=== PATIENT | male | born 1980 | race Caucasian/White ===

== ENCOUNTER 2018-01-20 19:36 | Emergency (ER) | END 2018-01-20 21:39 | disposition home or self-care (01) ==

== ENCOUNTER 2018-03-18 19:36 | Emergency (ER) | END 2018-03-18 23:34 | disposition home or self-care (01) ==

== ENCOUNTER 2018-08-17 09:53 | Emergency (ER) | payer OTHER ==
[~2018-08-17] VITALS: Wt 85.3 kg
[~2018-08-17 09:53] MED LIST: ALPR0.5T PO; NEXIUM; QUET25TA PO
[2018-08-17] MEDS ORDERED: ASPIRIN 325 MG TAB PO STA (10:16)
[2018-08-17] MEDS ORDERED: LORAZEPAM 2 MG INJ IV STA (10:16)
[2018-08-17] MEDS ORDERED: SOD CHLORIDE 0.9% 1,000 ML IV STA (10:16)
--- NOTE | 2018-08-17 11:06 | ERD ---
ER Documentation Chief Complaint Chief Complaint CHEST PAIN X 2 WEEKS HPI This is a 37-year-old male that presents to the emergency department complaining of two weeks of chest pain. He states this is sharp-like pain. He states the pain does not radiate to his neck arm back or jaw. He indicates that he does utilize Adderall prior to workouts on a daily basis and after workouts he takes GHB to help him relax. He indicates he gets these medications not prescribed but off the street. He also indicates he is a history of ulcers and takes omeprazole. He denies any hemoptysis hematemesis or melanotic stools. He denies any suicidal homicidal thoughts or ideations. He indicates he is a family history of coronary artery disease as his father had a heart attack at 58 years of age. He denies any shortness of breath at rest or exertion. The patient also indicates that he had unprotected sex 12 hours prior to arrival with a female he does not know very well. He indicated he awoke this morning and noticed redness to the tip of his penis. He denied any ulcers or lesions of the penis. He denied any abnormal urethral discharge. He is concerned for possible STD. ROS All systems reviewed and are negative except as per history of present illness. Medications Home Meds Discontinued Reported Medications [Nexium] No Conflict Check 08/23/11 Discontinued Scripts Quetiapine Fumarate* (Seroquel*) 25 Mg Tablet, 25 MG PO HS for insomnia, #5 TAB Prov:AYESHA KRAUS DO 03/18/18 Alprazolam* (Xanax*) 0.5 Mg Tab, 0.5 MG PO QHS PRN for INSOMNIA, #5 TAB Prov:AYESHA KRAUS DO 03/18/18 Allergies Allergies: Coded Allergies: morphine (Verified Allergy, Severe, angioedema, 08/17/18) PMhx/Soc History of Surgery: Yes (discectomy, STOMACH ULCER) Anesthesia Reaction: No Hx Neurological Disorder: No Hx Respiratory Disorders: No Hx Cardiac Disorders: No Hx Psychiatric Problems: No Hx Miscellaneous Medical Probl: No Hx Alcohol Use: No Hx Substance Use: Yes (GHB, adderall; hx of opioid/benzo abuse) Hx Tobacco Use: Yes Smoking Status: Current every day smoker Physical Exam Vitals Vital Signs Date Temp Pulse Resp B/P (MAP) Pulse Ox O2 O2 Flow FiO2 Time Delivery Rate 08/17/18 122 147/89 100 Room Air 11:31 (108) 08/17/18 144 20 144/98 Room Air 10:38 (113) 08/17/18 98.1 111 18 134/82 99 09:54 (99) Physical Exam Constitutional:Well-developed. Well-nourished. HEENT:Normocephalic. Atraumatic.Pupils were 2mm equal round reactive to light. Moist mucous membranes.No tonsillar exudates. Neck: No nuchal rigidity. No lymphadenopathy. No posterior cervical spine te nderness or step-offs. Respiratory: Not using accessory muscles of respiration.Lungs were clear to a uscultation bilaterally. No rhonchi. No rales. No wheezing. Cardiovascular: Tachycardic.No murmurs. No rubs were appreciated.S1, S2 normal. Distal pulses are palpable 2+ bilaterally. Reproducible tenderness over the left substernal chest wall with no crepitus no ecchymosis no flail chest GI: Abdomen was soft. Nontender. Non Distended. No pulsatile abdominal masses or bruits. No rebound. No guarding. Bowel sounds were present and normal. : No abnormal urethral discharge. No chancre. No ulcers or lesions on the shaft of the penis Muscle skeletal: Full range of motion of both the upper and lower extremities bilaterally.Normal muscle tone.No assymetrical calf tenderness or swelling. Skin: No petechia, no purpura. No lesions on the palms or the soles of the feet. No maculopapular rash. NEURO: Patient was alert, awake, orientated x3.No facial droop. Gait observed and normal with no ataxia.Speech had regular rate and rhythm. No focal neurological deficits. Result Diagram: 08/17/18 1020 08/17/18 1020 Results 24 hrs Laboratory Tests Test 08/17/18 10:20 White Blood Count 13.3 10^3/ul Red Blood Count 4.34 10^6/ul Hemoglobin 12.5 g/dl Hematocrit 38.6 % Mean Corpuscular Volume 88.9 fl Mean Corpuscular Hemoglobin 28.8 pg Mean Corpuscular Hemoglobin Concent 32.4 g/dl Red Cell Distribution Width 14.5 % Platelet Count 288 10^3/UL Mean Platelet Volume 10.2 fl Immature Granulocytes % 0.700 % Neutrophils % 67.2 % Lymphocytes % 18.4 % Monocytes % 12.0 % Eosinophils % 1.1 % Basophils % 0.6 % Nucleated Red Blood Cells % 0.0 /100WBC Immature Granulocytes # 0.090 10^3/ul Neutrophils # 8.9 10^3/ul Lymphocytes # 2.5 10^3/ul Monocytes # 1.6 10^3/ul Eosinophils # 0.1 10^3/ul Basophils # 0.1 10^3/ul Nucleated Red Blood Cells # 0.0 10^3/ul Prothrombin Time 12.6 Sec Prothrombin Time Ratio 1.0 INR International Normalized Ratio 0.93 Activated Partial Thromboplast Time 29.5 Sec Sodium Level 143 mmol/L Potassium Level 3.8 mmol/L Chloride Level 108 mmol/L Carbon Dioxide Level 21 mmol/L Anion Gap 14 Blood Urea Nitrogen 21 mg/dl Creatinine 0.85 mg/dl Est Glomerular Filtrat Rate mL/min > 60 mL/min Glucose Level 134 mg/dl Calcium Level 9.4 mg/dl Total Bilirubin 0.6 mg/dl Direct Bilirubin 0.00 mg/dl Indirect Bilirubin 0.6 mg/dl Aspartate Amino Transf (AST/SGOT) 31 IU/L Alanine Aminotransferase (ALT/SGPT) 21 IU/L Alkaline Phosphatase 88 IU/L Creatine Kinase 616 IU/L Creatine Kinase Index 0.6 Creatinine Kinase MB (Mass) 3.48 ng/ml Troponin I < 0.012 ng/ml B-Type Natriuretic Peptide 70 PG/ML Total Protein 7.7 g/dl Albumin 4.5 g/dl Globulin 3.20 g/dl Albumin/Globulin Ratio 1.40 Urine Opiates Screen Negative Urine Barbiturates Negative Urine Amphetamines Screen POSITIVE Urine Benzodiazepines Screen Negative Urine Cocaine Screen Negative Urine Cannabinoids Negative Ethyl Alcohol Level < 10.0 mg/dl Current Medications Medications Dose Sig/Brianna Start Time Status Last (Trade) Ordered Route PRN Stop Time Admin Dose Reason Admin Sodium 1,000 ml @ Q1H STAT 08/17/18 DC 08/17/18 Chloride 1,000 mls/hr IV 10:16 10:32 08/17/18 11:15 Aspirin 325 mg ONCE STAT 08/17/18 DC (Aspirin) PO 10:16 08/17/18 10:17 Lorazepam 1 mg ONCE STAT 08/17/18 DC 08/17/18 (Ativan) IV 10:16 10:32 08/17/18 10:17 Lorazepam 1 mg ONCE ONCE 08/17/18 DC 08/17/18 (Ativan) IV 11:30 11:28 08/17/18 11:31 1,000 mg ONCE STAT 08/17/18 DC 08/17/18 Azithromycin PO 11:22 11:27 (Zithromax) 08/17/18 11:23 Ceftriaxone 250 mg ONCE STAT 08/17/18 DC 08/17/18 Sodium IM 11:22 11:37 (Rocephin) 08/17/18 11:23 Procedures/MDM The patient presented to the emergency department complaining of chest pain. My clinical evaluation and workup was to distinguish minor causes of chest pain from acute life threatening cardiopulmonary causes such as myocardial infarction, pulmonary embolism, aortic dissection, esophageal rupture, cardiac tamponade, The patient was placed on a front desk monitor, continuous pulse oximetry and IV access established by nursing staff. The patient was refusing aspirin as he states he has ulcers. The patient was very anxious and was given IV Ativan. 12 Lead EKG tracing ordered and reviewed by myself showed: Sinus tachycardia 109 bpm and no arrhythmia. SC interval normal. QRS duration normal. No ST segment elevation No ST segment depression. No changes consistent with acute ischemia. The patients chest pain was reproduced by palpation and horizontal flexion of the arms. It was my clinical impression that the pain was a result of inflammation of the skin and subcutaneous structures of the chest wall versus myocardial ischemia. I felt the patient had low-risk chest pain and could therefore be safely discharged with close follow-up. The patient also has a possible STD exposure was prophylactically treated for gonorrhea and chlamydia given ceftriaxone and azithromycin in the emergency department. I did feel his chest pain was also exacerbated by the use of Adderall and GHB. I explained to the patient the adverse effects of using this medication when not prescribed by a physician. The patient was discharged home in fair condition. They were instructed to return to the emergency department at any time if there was any worsening of their condition. The patient stated they would follow up with their PCP in the next 24-48 hours to initiate a suitable medication regimen under the care of their PCP as well as to allow their PCP to monitor any drug reactions. The patient was discharged home with prescriptions after they gave informed consent to the new medication. The patient was positive for amphetamines. He was tachycardic thought to be secondary to amphetamine use and had been given IV Ativan. Tachycardia had result they were also fully informed by myself on the adverse effects and adverse drug interactions in order to provide adequate safeguards to prevent possible adverse reactions to medications. Departure Diagnosis: Primary Impression: Costochondritis, acute Additional Impressions: Potential exposure to STD Adverse effect of amphetamine Condition: CHAIM Kincaid MD Aug 17, 2018 11:04
[2018-08-17] MEDS ORDERED: AZITHROMYCIN 250 MG TAB PO STA (11:22)
[2018-08-17] MEDS ORDERED: CEFTRIAXONE 250 MG INJ IM STA (11:22)
[2018-08-17] MEDS ORDERED: LORAZEPAM 2 MG INJ IV ONE ×2 (11:30→13:00)
[2018-08-17 13:13] VITALS: BP 116/75; PULSE 129; RESP 21
== END 2018-08-17 14:09 | disposition home or self-care (01) ==
LOC: E/R 09:53
DX: M94.0 Chondrocostal junction syndrome [Tietze] (principal); T43.625A Adverse effect of amphetamines, initial encounter; F17.210 Nicotine dependence, cigarettes, uncomplicated; Z20.2 Contact with and (suspected) exposure to infections with a predominantly sexual mode of transmission
CPT/HCPCS: 36415; 71045; 80053; 80307; 82550; 82553; 83880; 84484; 85025; 85610; 85730; 93005; 96361; 96372; 96374; 96376; J0696; J2060; J7030; Z7502; Z7610

== ENCOUNTER 2019-01-03 09:36 | Day surgery (SDC) | payer OTHER ==
[2019-01-03] VITALS (15 sets, daily range): BP systolic 104–126; BP diastolic 50–71; PULSE 72–94; RESP 13–20; Ht 170.2 cm; Wt 93.1 kg
[~2019-01-03] VITALS: Ht 170.2 cm; Wt 93.1 kg
[2019-01-03] MEDS ORDERED: ESOM20CA PO (10:33)
--- NOTE | 2019-01-03 10:40 | HPN ---
Date/Time of Note Date/Time of Note DATE: 01/03/19 TIME: 10:40 Interval H&P Admission Note Pt. seen H&P reviewed: No system changes KALEB DE LA PAZ MD January 03, 2019 10:40
[2019-01-03] MEDS ORDERED: BUPIVACAINE 0.25% (MPF) 30 ML INJ ONE (12:52)
[2019-01-03] MEDS ORDERED: LIDOCAINE 1%/EPI (1:100,000) (MDV) 20 ML ONE (12:52)
--- NOTE | 2019-01-03 13:08 | PREAC ---
Date/Time of Note Date/Time of Note DATE: 01/03/19 TIME: 13:06 Anesthesia Eval and Record Evaluation Time Pre-Procedure Interview DATE: 01/03/19 TIME: 13:06 Age 38 Sex male NPO: 8 hrs Preoperative diagnosis thyroid cyst Planned procedure thyroid cyst excision Past Medical History Past Medical History: Includes GI: GERD, Other (stomach ulcer ) Recreational drugs: Other (hx of opiod use ) Surgery & Anesthesia Issues No known issue Meds Anticoagulation: No Beta Ely within 24 hr: No Reason Beta Ely not given: Pt. not on B-Ely Reported Medications Esomeprazole Mag Trihydrate (Nexium) 20 Mg Capsule.dr, 20 MG PO DAILY, #30 CAP 01/03/19 Meds reviewed: Yes Allergies Coded Allergies: morphine (Verified Allergy, Severe, THROAT CLOSING ITCHY, 01/03/19) Allergies Reviewed: Yes Labs/Studies Labs Reviewed: Reviewed by anesthesiologist test: N/A Pre-procedure Exam Last vitals Vital Signs Date Temp Pulse Resp B/P (MAP) Pulse Ox O2 O2 Flow FiO2 Time Delivery Rate 01/03/19 98.0 82 16 116/64 97 Room Air 10:39 (81) Airway: Adequate mouth opening, Adequate thyromental dist Mallampati: Mallampati III Teeth: Normal Lung: Normal Heart: Normal ASA Physical Status ASA physical status: 2 Emergency: None Pre-operative Attestations Prior to commencing anesthesia and surgery, the patient was re-evaluated, there was verification of: *The patient's identity *The results of appropriate recent lab work and preoperative vital signs *The above evaluation not changing prior to induction *Anesthetic plan, risk benefits, alternative and complications discussed with patient/family; questions answered; patient/family understands, accepts and w ishes to proceed. EMY REYNOSO DO January 03, 2019 13:08
[2019-01-03] MEDS ORDERED: PROPOFOL 20 ML ONE (13:12)
[2019-01-03] MEDS ORDERED: LIDOCAINE 2% (SDV) 5 ML INJ ONE (13:12)
[2019-01-03] MEDS ORDERED: FENTAnyl 50 MCG/ML VIAL ONE (13:13)
[2019-01-03] MEDS ORDERED: MIDAZOLAM 1 MG/ML 2 ML INJ ONE (13:13)
[2019-01-03] MEDS ORDERED: CEFAZOLIN 1 GM INJ ONE (13:24)
[2019-01-03] MEDS ORDERED: ONDANSETRON 4 MG INJ ONE (13:24)
[2019-01-03] MEDS ORDERED: KETOROLAC 30 MG INJ IV PRN (13:30)
[2019-01-03] MEDS ORDERED: ACETAMINOPHEN 1000MG/100ML IV 100 ML IVPB ONE (13:30)
[2019-01-03] MEDS ORDERED: SUGAMMADEX SODIUM 200 MG/2 ML VIAL IV ONE (14:10)
--- NOTE | 2019-01-03 14:15 | SIPON ---
Date/Time of Note Date/Time of Note DATE: 01/03/19 TIME: 14:14 Operative Report Preoperative Diagnosis Midline thyroid cyst Postoperative Diagnosis Same Operation/Procedure Performed Partial thyroidectomy with excision of midline thyroid cyst Surgeon see signature line graphic design assistant None Anesthesia: general Estimated blood loss: minimal Transfusion Required none Specimen Thyroid cyst Grafts/Implants none Complications none KALEB DE LA PAZ MD January 03, 2019 14:15
--- NOTE | 2019-01-03 14:19 | OPR ---
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 The patient is symptomatic from the cyst and wishes to have it excised. The risks, benefits and alternative surgery were discussed. The risks included but not limited to bleeding, infection, scar, recurrence of cyst, need for further surgery, damage the recurrent laryngeal nerves, permanent hoarseness and numbness to the area. He understood these and signed consent. Procedure Description After informed consent was obtained, the patient was brought back to operating room. He was intubated by anesthesia and sedated. Shoulder roll was placed. The neck was prepped and draped in usual sterile fashion. A 2 cm incision was marked in a relaxed skin tension line overlying the cyst. The incision was carried down to the strap muscles. The strap muscles were divided in the midline. Medially the cyst was encountered. I first dissected inferiorly midline identifying the trachea. I then dissected superiorly midline above the isthmus. I then carefully dissected away fascial attachments of the thyroid parenchyma away from the cyst. This was done carefully and slowly so as not to cauterize any tissue that had any appearance of that of nerve tissue. And no point did my dissection carry over to the lateral side of the trachea. Once rem fernie, the area was irrigated profusely with saline. A small piece of Surgicel was placed in the wound bed. The strap muscles were closed with 3-0 Vicryl suture. The platysma was closed with 3-0 Vicryl suture. The skin was closed in a subcuticular fashion with 5-0 Monocryl. Mastisol, Steri-Strips, Telfa and Tegaderm placed on the incision. The patient was extubated by anesthesia and brought to the recovery in stable condition. KALEB DE LA PAZ MD January 03, 2019 14:19
--- NOTE | 2019-01-03 14:27 | PAC ---
Date/Time of Note Date/Time of Note DATE: 01/03/19 TIME: 14:27 Post-Anesthesia Notes Post-Anesthesia Note Last documented vital signs Vital Signs Date Temp Pulse Resp B/P (MAP) Pulse Ox O2 O2 Flow FiO2 Time Delivery Rate 01/03/19 98 75 18 115/62 97 Room Air 1427 Activity: WNL Respiratory function: WNL Cardiovascular function: WNL Mental status: Baseline Pain reasonably controlled: Yes Hydration appropriate: Yes Nausea/Vomiting absent: Yes EMY REYNOSO DO January 03, 2019 14:27
== END 2019-01-03 16:29 | disposition home or self-care (01) ==
LOC: SDS 09:36
PROVIDERS: ATTEND Otolaryngology
DX: E04.1 Nontoxic single thyroid nodule (principal); K21.9 Gastro-esophageal reflux disease without esophagitis; F45.8 Other somatoform disorders; J34.89 Other specified disorders of nose and nasal sinuses
CPT/HCPCS: 60200; 88305; J0131; J0690; J1885; J2250; J2405; Z7512; Z7610; J3010